=== PATIENT | female | born 1950 | race Asian ===

== ENCOUNTER 2021-09-16 12:15 | Day surgery (SDC) | payer MEDICARE ==
[2021-09-16] MEDS ORDERED: Sodium Chloride 0.9% 1000 ML 1,000 ML ONE (13:41)
[2021-09-16] MEDS ORDERED: EMLA Cream 5 GM TP ONE (14:02)
[2021-09-16] MEDS ORDERED: Depo-Medrol 40 MG/ML IM ONE (14:50)
[2021-09-16] MEDS ORDERED: BUPIVACAINE 0.5% VIAL IJ ONE (14:50)
[2021-09-16] MEDS ORDERED: DIPRIVAN 200 MG/20 ML IV ONE (15:19)
--- NOTE | 2021-09-16 16:40 | XRAY ---
Indication: Right SI joint injection. Intraoperative fluoroscopy provided for 13 seconds. 2 digital spot images submitted for interpretation demonstrates posterior needle tip projecting over the inferior right SI joint. Correlate with intraoperative findings/report.
--- NOTE | 2021-09-16 17:19 | XRAY ---
13 seconds of fluoroscopy was used in surgery for a right SI joint injection.
== END 2021-09-16 15:50 | disposition home or self-care (01) ==
LOC: SDC-PAIN 12:15
PROVIDERS: ATTEND Psychiatry & Neurology Pain Medicine
DX: M46.1 Sacroiliitis, not elsewhere classified (principal); I10 Essential (primary) hypertension; E78.5 Hyperlipidemia, unspecified; Z79.899 Other long term (current) drug therapy
CPT/HCPCS: 27096; 72020; 77002; G0260; J1030; J1642; J2704; A9270-GY

== ENCOUNTER 2021-10-14 11:42 | Day surgery (SDC) | payer MEDICARE ==
[2021-10-14] MEDS ORDERED: Sodium Chloride 0.9% 1000 ML 1,000 ML ONE (12:29)
[2021-10-14] MEDS ORDERED: EMLA Cream 5 GM TP ONE (12:38)
[2021-10-14] MEDS ORDERED: DIPRIVAN 200 MG/20 ML IV ONE (14:31)
--- NOTE | 2021-10-14 15:30 | XRAY ---
Indication: Right hip injection. Intraoperative fluoroscopy provided for 12 seconds. Single digital spot image submitted for interpretation demonstrates needle tip lateral to right femur neck. Small amount of contrast injected for needle tip placement. Correlate with intraoperative findings/report.
--- NOTE | 2021-10-14 15:31 | XRAY ---
Indication: Right knee injection. Intraoperative fluoroscopy provided for 5 seconds. Single digital spot image submitted for interpretation demonstrates needle tip projecting over the right femur intercondylar notch. Small amount of contrast injected for needle tip placement. Correlate with intraoperative findings/report.
--- NOTE | 2021-10-14 15:36 | XRAY ---
12 seconds fluoroscopy time in surgery for intra-articular injection of the right hip.
--- NOTE | 2021-10-14 15:36 | XRAY ---
5 seconds fluoroscopy time in surgery for intra-articular injection of the right knee.
== END 2021-10-14 14:45 | disposition home or self-care (01) ==
LOC: SDC-PAIN 11:42
PROVIDERS: ATTEND Psychiatry & Neurology Pain Medicine
DX: M16.11 Unilateral primary osteoarthritis, right hip (principal); M17.11 Unilateral primary osteoarthritis, right knee; Z79.899 Other long term (current) drug therapy
CPT/HCPCS: 73501; 73560; 77002; J1642; J2704; A9270-GY